=== PATIENT | male | born 2000 | race Hispanic/Latino ===

== ENCOUNTER 2018-01-23 14:01 | Emergency (ER) | payer BC ==
[~2018-01-23] VITALS: Ht 180.3 cm; Wt 86.2 kg
[2018-01-23] MEDS ORDERED: HYDROCODONE/APAP 5MG-325MG TAB PO ONE ×2 (14:45→15:30)
--- NOTE | 2018-01-23 15:55 | Diagnostic Imaging Report ---
ANKLE 3 + VIEWS RIGHT, FOOT RIGHT COMPLETE - 3 views HISTORY: Pain status post fall. [ COMPARISON: None available. FINDINGS: Bones: No acute displaced fracture. Osseous alignment is within normal limits. Joints: The joint spaces are well-maintained. Slight hallux valgus deformity. Soft tissues: The soft tissues appear unremarkable. IMPRESSION: No acute osseous abnormality. Signed by: Dr. Goldy Cooper M.D. on 01/23/2018 3:52 PM
--- NOTE | 2018-01-23 15:57 | Diagnostic Imaging Report ---
KNEE LEFT THREE VIEWS - 3 views HISTORY: Pain status post fall. COMPARISON: None available. FINDINGS: Bones: No acute displaced fracture. Osseous alignment is within normal limits. Joints: The joint spaces are well-maintained. Soft tissues: The mild soft tissue swelling about the lateral aspect of the knee. IMPRESSION: No acute osseous abnormality. Signed by: Dr. Goldy Cooper M.D. on 01/23/2018 3:53 PM
== END 2018-01-23 16:50 | disposition home or self-care (01) ==
LOC: EDSEX 14:01 → ER 14:01
DX: M25.562 Pain in left knee (principal); M25.462 Effusion, left knee; S83.412A Sprain of medial collateral ligament of left knee, initial encounter; S83.422A Sprain of lateral collateral ligament of left knee, initial encounter; S93.611A Sprain of tarsal ligament of right foot, initial encounter; S93.621A Sprain of tarsometatarsal ligament of right foot, initial encounter
CPT/HCPCS: 99283